=== PATIENT | female | born 1995 | race Caucasian/White ===

== ENCOUNTER 2016-03-03 19:33 | Emergency (ER) | payer MEDICAID | END 2016-03-03 21:35 | disposition home or self-care (01) | LOC: D.ER 19:33 | DX: J02.9 Acute pharyngitis, unspecified (principal); F17.200 Nicotine dependence, unspecified, uncomplicated ==

== ENCOUNTER 2016-07-27 23:36 | Emergency (ER) | payer OTHER ==
[2016-07-28 00:02] LABS: APPEARANCE CLOUDY (CLEAR); COLOR YELLOW (YELLOW); GLUCOSE NEGATIVE (NEGATIVE); KETONE SMALL mg/dL (NEGATIVE); LEUKOCYTE ESTERASE 1+ (NEGATIVE); NITRITE NEGATIVE (NEGATIVE); PROTEIN TRACE mg/dL (NEGATIVE); SPECIFIC GRAVITY 1.015 (1.005-1.020)
[2016-07-28 00:03] LABS: BACTERIA FEW /hpf (NONE SEEN); BILIRUBIN NEGATIVE (NEGATIVE); RED CELLS - URINE 0-5 /hpf (0-5); UDS - AMPHET POSITIVE QUAL (NEGATIVE); UDS - BARB NEGATIVE QUAL (NEGATIVE); UDS - BENZO NEGATIVE QUAL (NEGATIVE); UDS - COCAINE NEGATIVE QUAL (NEGATIVE); UDS - METH NEGATIVE QUAL (NEGATIVE); UDS - OPIATE NEGATIVE QUAL (NEGATIVE); UDS - PCP NEGATIVE QUAL (NEGATIVE); UDS - THC NEGATIVE QUAL (NEGATIVE)
[2016-07-28 00:04] LABS: HCG URINE NEGATIVE (NEGATIVE)
[2016-07-28 00:09] LABS: BASOPHILS 0.3 % (0-2); EOSINOPHILS 1.5 % (0-7); HEMATOCRIT 41.4 % (36.0-48.0); HEMOGLOBIN 14.4 g/dL (12-16); IMMATURE GRANULOCYTES 0.2 % (0-5); LYMPHOCYTES 47.2 % (15-50); MCH 32.6 pg (26.0-34.0); MCHC 34.8 g/dL (31.0-37.0); MCV 93.7 fL (80.0-100.0); MEAN PLATELET VOLUME 10.2 fL (7.4-10.4); MONOCYTES 11.5 % (2-11); NEUTROPHILS 39.3 % (40-80); PLATELET COUNT 229 10x3/uL (130-400); RBC 4.42 10x6/uL (4.00-5.40); RDW 12.2 % (11.5-14.5); WBC 5.8 10x3/uL (4.8-10.8)
[2016-07-28 00:18] LABS: ALBUMIN 4.2 g/dL (3.4-5.0); ALKALINE PHOSPHATASE 52 U/L (46-116); ALT (SGPT) 21 U/L (10-68); BILIRUBIN - TOTAL 1.84 mg/dL (0.2-1.3); CALC OSMOLALITY 278 mosm/kg (275-300); CARBON DIOXIDE 28.1 mmol/L (21.0-32.0); CHLORIDE - SERUM 104 mmol/L (98-107); CREATININE - SERUM 0.7 mg/dL (0.6-1.3); GLUCOSE 94 mg/dL (74-106); POTASSIUM - SERUM 3.8 mmol/L (3.5-5.1); PROTEIN - SERUM 7.6 g/dL (6.4-8.2); SODIUM 140 mmol/L (136-145); UREA NITROGEN 13 mg/dL (7-18); eGFR NON AFRICAN AMERICAN > 90 mL/min (90-120)
== END 2016-07-28 01:19 | disposition home or self-care (01) ==
LOC: D.ER 23:36
PROVIDERS: Emergency Medicine
DX: N39.0 Urinary tract infection, site not specified (principal); F17.200 Nicotine dependence, unspecified, uncomplicated

== ENCOUNTER 2017-03-26 18:56 | Emergency (ER) | payer SELFPAY ==
[2017-03-26 19:51] LABS: COLOR YELLOW (YELLOW)
[2017-03-26 19:52] LABS: APPEARANCE CLEAR (CLEAR); BILIRUBIN NEGATIVE (NEGATIVE); GLUCOSE NEGATIVE (NEGATIVE); KETONE LARGE mg/dL (NEGATIVE); NITRITE NEGATIVE (NEGATIVE); PROTEIN NEGATIVE (NEGATIVE); SPECIFIC GRAVITY 1.025 (1.005-1.020); UROBILINOGEN NORMAL (NORMAL)
[2017-03-26 21:48] LABS: BASOPHILS 0.2 % (0-2); EOSINOPHILS 0.4 % (0-7); HEMATOCRIT 34.7 % (36.0-48.0); HEMOGLOBIN 12.3 g/dL (12-16); LYMPHOCYTES 15.9 % (15-50); MCH 32.6 pg (26.0-34.0); MCHC 35.4 g/dL (31.0-37.0); MEAN PLATELET VOLUME 9.9 fL (7.4-10.4); MONOCYTES 11.1 % (2-11); NEUTROPHILS 72.4 % (40-80); RBC 3.77 10x6/uL (4.00-5.40); RDW 11.5 % (11.5-14.5)
[2017-03-26 21:58] LABS: HCG SERUM POSITIVE (NEGATIVE)
[2017-03-26 22:17] LABS: PLATELET COUNT 172 10x3/uL (130-400)
== END 2017-03-26 22:15 | disposition home or self-care (01) ==
LOC: D.ER 18:56
PROVIDERS: Emergency Medicine; Nurse Practitioner Family
DX: J11.1 Influenza due to unidentified influenza virus with other respiratory manifestations (principal); J06.9 Acute upper respiratory infection, unspecified; F17.200 Nicotine dependence, unspecified, uncomplicated

== ENCOUNTER 2017-05-02 12:23 | Emergency (ER) | payer MEDICAID ==
[2017-05-02 12:58] LABS: BASOPHILS 0.1 % (0-2); EOSINOPHILS 0.7 % (0-7); HEMATOCRIT 33.4 % (36.0-48.0); HEMOGLOBIN 11.9 g/dL (12-16); IMMATURE GRANULOCYTES 0.2 % (0-5); LYMPHOCYTES 21.2 % (15-50); MCH 33.1 pg (26.0-34.0); MCHC 35.6 g/dL (31.0-37.0); MCV 92.8 fL (80.0-100.0); MEAN PLATELET VOLUME 10.2 fL (7.4-10.4); MONOCYTES 5.5 % (2-11); NEUTROPHILS 72.3 % (40-80); PLATELET COUNT 183 10x3/uL (130-400); RDW 11.9 % (11.5-14.5); WBC 8.1 10x3/uL (4.8-10.8)
[2017-05-02 13:07] LABS: HCG SERUM POSITIVE (NEGATIVE)
[2017-05-02 13:35] LABS: ALBUMIN 3.9 g/dL (3.4-5.0); ALKALINE PHOSPHATASE 34 U/L (46-116); ALT (SGPT) 24 U/L (10-68); BILIRUBIN - TOTAL 0.88 mg/dL (0.2-1.3); CALC OSMOLALITY 248 mosm/kg (275-300); CALCIUM 8.8 mg/dL (8.5-10.1); CARBON DIOXIDE 25.9 mmol/L (21.0-32.0); CHLORIDE - SERUM 99 mmol/L (98-107); CREATININE - SERUM 0.6 mg/dL (0.6-1.3); GLUCOSE 105 mg/dL (74-106); HCG - QUANTITATIVE (MATERNAL) 53172 mIU/mL; POTASSIUM - SERUM 3.4 mmol/L (3.5-5.1); PROTEIN - SERUM 7.2 g/dL (6.4-8.2); SODIUM 124 mmol/L (136-145); UREA NITROGEN 9 mg/dL (7-18); eGFR NON AFRICAN AMERICAN > 90 mL/min (90-120)
[2017-05-02 13:42] LABS: APPEARANCE HAZY (CLEAR); BACTERIA MODERATE /hpf (NONE SEEN); BILIRUBIN NEGATIVE (NEGATIVE); COLOR YELLOW (YELLOW); EPITHELIAL CELLS 0-5 /hpf (0-5); GLUCOSE NEGATIVE (NEGATIVE); KETONE NEGATIVE (NEGATIVE); MUCUS <1+ /lpf (NONE SEEN); NITRITE NEGATIVE (NEGATIVE); PROTEIN NEGATIVE (NEGATIVE); RED CELLS - URINE OCC /hpf (0-5); WHITE CELLS - URINE OCC /hpf (0-5)
== END 2017-05-02 17:05 | disposition home or self-care (01) ==
LOC: D.ER 12:23
PROVIDERS: Family Medicine
DX: O20.9 Hemorrhage in early pregnancy, unspecified (principal); Z3A.11 11 weeks gestation of pregnancy; F17.200 Nicotine dependence, unspecified, uncomplicated

== ENCOUNTER → 2017-07-08 14:57 | Outpatient (CLI) | payer BC, MEDICAID ==
[2017-07-08 15:43] LABS: BASOPHILS 0.1 % (0-2); EOSINOPHILS 0.5 % (0-7); HEMATOCRIT 32.4 % (36.0-48.0); HEMOGLOBIN 11.4 g/dL (12-16); IMMATURE GRANULOCYTES 0.3 % (0-5); LYMPHOCYTES 12.5 % (15-50); MCH 33.5 pg (26.0-34.0); MCHC 35.2 g/dL (31.0-37.0); MCV 95.3 fL (80.0-100.0); MEAN PLATELET VOLUME 10.1 fL (7.4-10.4); MONOCYTES 3.4 % (2-11); NEUTROPHILS 83.2 % (40-80); PLATELET COUNT 157 10x3/uL (130-400); RDW 12.3 % (11.5-14.5); WBC 11.2 10x3/uL (4.8-10.8)
[2017-07-08 16:06] LABS: ALBUMIN 3.4 g/dL (3.4-5.0); ALKALINE PHOSPHATASE 38 U/L (46-116); ALT (SGPT) 15 U/L (10-68); CALC OSMOLALITY 275 mosm/kg (275-300); CALCIUM 8.5 mg/dL (8.5-10.1); CARBON DIOXIDE 23.9 mmol/L (21.0-32.0); CHLORIDE - SERUM 104 mmol/L (98-107); CREATININE - SERUM 0.6 mg/dL (0.6-1.3); GLUCOSE 139 mg/dL (74-106); POTASSIUM - SERUM 3.5 mmol/L (3.5-5.1); PROTEIN - SERUM 6.6 g/dL (6.4-8.2); SODIUM 138 mmol/L (136-145); UREA NITROGEN 7 mg/dL (7-18); eGFR NON AFRICAN AMERICAN > 90 mL/min (90-120)
[2017-07-08 16:37] LABS: APPEARANCE CLEAR (CLEAR); BACTERIA MANY /hpf (NONE SEEN); BILIRUBIN NEGATIVE (NEGATIVE); COLOR YELLOW (YELLOW); GLUCOSE NEGATIVE (NEGATIVE); KETONE NEGATIVE (NEGATIVE); NITRITE NEGATIVE (NEGATIVE); PROTEIN NEGATIVE (NEGATIVE); RED CELLS - URINE OCC /hpf (0-5); UROBILINOGEN NORMAL (NORMAL); WHITE CELLS - URINE 0-5 /hpf (0-5)
== END | disposition home or self-care (01) ==
LOC: D.LDO 14:57 → D.ER 14:57 → EDSTATUS 20:04
PROVIDERS: Nurse Practitioner Family
DX: O21.0 Mild hyperemesis gravidarum (principal); Z3A.21 21 weeks gestation of pregnancy; I95.9 Hypotension, unspecified; N39.0 Urinary tract infection, site not specified

== ENCOUNTER → 2017-10-19 22:06 | Outpatient (CLI) | payer BC, MEDICAID ==
[~2017-10-19 22:06] MED LIST: prenatal gummies PO
[2017-10-19 22:44] LABS: APPEARANCE CLEAR (CLEAR); BILIRUBIN NEGATIVE (NEGATIVE); COLOR YELLOW (YELLOW); GLUCOSE NEGATIVE (NEGATIVE); KETONE NEGATIVE (NEGATIVE); NITRITE NEGATIVE (NEGATIVE); PROTEIN NEGATIVE (NEGATIVE); SPECIFIC GRAVITY 1.015 (1.005-1.020); UROBILINOGEN NORMAL (NORMAL)
== END | disposition home or self-care (01) ==
LOC: D.LDO 22:06
PROVIDERS: Obstetrics & Gynecology
DX: O26.893 Other specified pregnancy related conditions, third trimester (principal); Z3A.35 35 weeks gestation of pregnancy; M54.5 Low back pain; R35.0 Frequency of micturition

== ENCOUNTER 2017-11-17 06:33 | Outpatient (CLI) | payer BC, MEDICAID ==
[2017-12-03 11:50] VITALS: BMI 24.6
== END 2017-11-17 07:05 | disposition home or self-care (01) ==
LOC: D.LDO 06:33
DX: O26.893 Other specified pregnancy related conditions, third trimester (principal); Z3A.39 39 weeks gestation of pregnancy

== ENCOUNTER 2017-11-20 09:52 | Inpatient (IN) | payer BC, MEDICAID ==
[~2017-11-20] VITALS: Ht 154.9 cm; Wt 68.0 kg
--- NOTE | ~2017-11-20 | OP ---
PATIENT NAME: MARC HUNT MEDICAL RECORD: [id number] :96 LOCATION:[facility]1274 ADMISSION DATE:11/20/17 SURGEON: BEAR PARISI MD DATE OF OPERATION: 11/21/2017 PREOPERATIVE DIAGNOSES: 1. at term. 2. Arrest of dilation. POSTOPERATIVE DIAGNOSES: 1. at term. 2. Arrest of dilation. 3. Mother delivered. PROCEDURE: Primary low transverse section. SURGEON: Bear Parisi MD TRIM SETTER: Familia Sharp. ANESTHESIA: Spinal. FINDINGS: Viable female , vertex presentation. OP with caput. Weight 7 pounds 11 ounces with 9 and 9 Apgars. Unremarkable uterus, tubes, and ovaries. SPECIMENS REMOVED: Placenta. SPECIMEN DISPOSITION: Discarded. ESTIMATED BLOOD LOSS: 800 cc. FLUIDS: 1300 cc of lactated Ringer's. URINE OUTPUT: 600 cc of clear urine. COMPLICATIONS: None. DRAIN: Rosas to gravity. INDICATIONS: The patient is a 21-year-old female undergoing induction of labor at term. The patient progresses in the active labor and after 4 hours of adequate contractions, no further dilation and increasing caput. The patient is consented for primary low transverse section. DESCRIPTION OF PROCEDURE: After informed consent was assured, the patient was taken to the operating room where anesthetic was obtained. The patient was prepped and draped and the anesthetic assessed. Once satisfied with the anesthetic, a Pfannenstiel incision was made and the abdomen was entered sharply. The peritoneum and the rectus bellies were and a DeLee all-purpose retractor inserted. Bladder flaps developed and this retractor was now reinserted. Low transverse hysterotomy was performed and the infant was delivered onto the abdomen atraumatically. Cord was doubly clamped and cut and the infant passed to the attendance. The placenta is delivered via Crede maneuver and passed off the field. After cord clamping, blood sample was obtained. Ancef has been given as well as Pitocin now in the lactated Ringer's. OPERATIVE REPORT [id number] MARC HUNT After the uterus has been cleared of clot and debris, it is closed with a running locked stitch of chromic. Simple stitches applied to the left corner to obtain hemostasis. Uterus was returned. Pelvis was irrigated and inspection of the hysterotomy revealed adequate hemostasis. Peritoneum is now reapproximated in the midline and the fascia closed with looped PDS. Subcutaneous tissue was now inspected. Bleeding vessels cauterized and the skin reapproximated with german. Sponge, lap, and needle counts correct times 2 and sterile dressing was applied. The patient will be recovered and cared for on labor and delivery. TRANSINT:[id number] Voice Confirmation ID: [id number] DOCUMENT ID: [id number] BEAR PARISI MD at 1450 CC: [id number] DICTATION DATE: 11/21/17 1525 ICING COATER: 11/21/17 1601 ADM IN [facility] [address] [id number]
--- NOTE | ~2017-11-20 | DS ---
PATIENT:MARC HUNT :89 MEDICAL RECORD: [id number] DISCHARGE SUMMARY ADMISSION DATE: 11/20/17 DISCHARGE DATE: 11/23/17 DATE OF ADMISSION: 11/20/2017 DATE OF DISCHARGE: 11/23/2017 ADMISSION DIAGNOSIS: at term. DISCHARGE DIAGNOSIS: Arrest of dilation. PROCEDURE: Primary low transverse section. ATTENDING: Azar Parisi MD HISTORY OF PRESENT ILLNESS: See the H&P in the chart. SUMMARY OF HOSPITALIZATION: The patient was admitted for an induction of labor, progressed into labor and failed to dilate after 5 cm and adequate contractions. The patient had primary section without incident. At the time of discharge, her hematocrit was 24 and she has been instructed to take p.o. iron. The patient is asymptomatic. The patient does have cough; however, it is not productive. I will prescribe Robitussin-AC and give her respiratory precautions. Incision is clean, dry, and intact. Standard postoperative and precautions have been reviewed. Follow up on Friday for staple removal. TRANSINT:[id number] Voice Confirmation ID: [id number] DOCUMENT ID: [id number] AZAR PARISI MD at 1329 CC: [id number] DICTATION DATE: 11/23/17 0943 COMMERCIAL SALES DIRECTOR: 11/23/172007 DIS IN 11/23/17 [id number] [place] [address]
[2017-11-20 17:30] VITALS: BP 110/58; Ht 154.9 cm; Wt 68.0 kg
[2017-11-20 17:46] LABS: HEMATOCRIT 29.1 % (36.0-48.0); HEMOGLOBIN 9.9 g/dL (12-16); MCH 32.4 pg (26.0-34.0); MCV 95.1 fL (80.0-100.0); MEAN PLATELET VOLUME 10.3 fL (7.4-10.4); RBC 3.06 10x6/uL (4.00-5.40); RDW 12.7 % (11.5-14.5); WBC 11.9 10x3/uL (4.8-10.8)
[2017-11-20 17:52] LABS: UDS - AMPHET NEGATIVE QUAL (NEGATIVE); UDS - BARB NEGATIVE QUAL (NEGATIVE); UDS - BENZO NEGATIVE QUAL (NEGATIVE); UDS - COCAINE NEGATIVE QUAL (NEGATIVE); UDS - OPIATE NEGATIVE QUAL (NEGATIVE); UDS - PCP NEGATIVE QUAL (NEGATIVE); UDS - THC NEGATIVE QUAL (NEGATIVE)
[2017-11-21] VITALS (10 sets, daily range): BP systolic 112–125; BP diastolic 56–72
[2017-11-21 06:15] LABS: RAPID PLASMA REAGIN Non Reactive (Non Reactive)
[2017-11-22 02:54] VITALS: BP 107/61
[2017-11-22 05:59] LABS: BASOPHILS 0.1 % (0-2); EOSINOPHILS 0.2 % (0-7); IMMATURE GRANULOCYTES 0.5 % (0-5); MCH 32.4 pg (26.0-34.0); MCHC 34.3 g/dL (31.0-37.0); MCV 94.3 fL (80.0-100.0); MEAN PLATELET VOLUME 9.8 fL (7.4-10.4); MONOCYTES 4.7 % (2-11); NEUTROPHILS 87.5 % (40-80); RDW 12.8 % (11.5-14.5); WBC 13.3 10x3/uL (4.8-10.8)
[2017-11-22 06:10] LABS: HEMOGLOBIN 7.9 g/dL (12-16); PLATELET COUNT 125 10x3/uL (130-400); RBC 2.44 10x6/uL (4.00-5.40)
[2017-11-22 07:42] VITALS: BP 121/57
[2017-11-22 14:57] VITALS: BP 110/55
[2017-11-22 19:10] VITALS: BP 106/60
[2017-11-22 22:53] VITALS: BP 129/73
[2017-11-23 08:37] VITALS: BP 140/73
[2017-11-23] MEDS ORDERED: PERCOCET 7.5/321 TAB PO (10:00)
[2017-11-23] MEDS ORDERED: GUAIFENESI100 MG/5 M PO (10:04)
== END 2017-11-23 14:15 | disposition home or self-care (01) | DRG 788 ==
LOC: D.LD 09:52
PROVIDERS: Obstetrics & Gynecology
PROC: 10D00Z1 Extraction of Products of Conception, Low, Open Approach (ICD-10-PCS; principal; 2017-11-21 13:00)
DX: O62.1 Secondary uterine inertia (principal); Z3A.40 40 weeks gestation of pregnancy; Z37.0 Single live birth; O99.334 Smoking (tobacco) complicating childbirth

== ENCOUNTER 2017-11-27 22:08 | Emergency (ER) | payer BC, MEDICAID ==
[~2017-11-27] VITALS: Ht 154.9 cm; Wt 65.0 kg
[~2017-11-27 22:08] MED LIST changes: +GUAIFENESI100 MG/5 M PO; +PERCOCET 7.5/321 TAB PO
[2017-11-27 22:16] VITALS: Ht 154.9 cm; Wt 65.0 kg
[2017-11-27 22:36] LABS: BASOPHILS 0.1 % (0-2); EOSINOPHILS 1.4 % (0-7); HEMATOCRIT 25.5 % (36.0-48.0); HEMOGLOBIN 8.3 g/dL (12-16); IMMATURE GRANULOCYTES 0.7 % (0-5); LYMPHOCYTES 11.5 % (15-50); MCH 31.2 pg (26.0-34.0); MCHC 32.5 g/dL (31.0-37.0); MCV 95.9 fL (80.0-100.0); MEAN PLATELET VOLUME 8.8 fL (7.4-10.4); MONOCYTES 6.8 % (2-11); NEUTROPHILS 79.5 % (40-80); RBC 2.66 10x6/uL (4.00-5.40); RDW 12.8 % (11.5-14.5); WBC 12.3 10x3/uL (4.8-10.8)
[2017-11-27 22:38] LABS: PLATELET COUNT 238 10x3/uL (130-400)
[2017-11-27 22:49] LABS: ALBUMIN 2.3 g/dL (3.4-5.0); ALKALINE PHOSPHATASE 86 U/L (46-116); ALT (SGPT) 12 U/L (10-68); CALC OSMOLALITY 280 mosm/kg (275-300); CALCIUM 8.1 mg/dL (8.5-10.1); CARBON DIOXIDE 23.9 mmol/L (21.0-32.0); CHLORIDE - SERUM 105 mmol/L (98-107); CREATININE - SERUM 0.8 mg/dL (0.6-1.3); GLUCOSE 106 mg/dL (74-106); POTASSIUM - SERUM 3.5 mmol/L (3.5-5.1); PROTEIN - SERUM 6.1 g/dL (6.4-8.2); SODIUM 142 mmol/L (136-145); UREA NITROGEN 6 mg/dL (7-18); eGFR NON AFRICAN AMERICAN > 90 mL/min (90-120)
[2017-11-27 23:33] LABS: APPEARANCE HAZY (CLEAR); BILIRUBIN NEGATIVE (NEGATIVE); COLOR YELLOW (YELLOW); GLUCOSE NEGATIVE (NEGATIVE); KETONE NEGATIVE (NEGATIVE); NITRITE NEGATIVE (NEGATIVE); PROTEIN NEGATIVE (NEGATIVE); UROBILINOGEN NORMAL (NORMAL)
[2017-11-27 23:34] LABS: BACTERIA MODERATE /hpf (NONE SEEN); EPITHELIAL CELLS 0-5 /hpf (0-5); RED CELLS - URINE 0-5 /hpf (0-5)
[2017-11-28] MEDS ORDERED: OMNICEF300 MG PO (00:58)
[2017-11-28 01:28] VITALS: BP 128/67
== END 2017-11-28 01:28 | disposition home or self-care (01) ==
LOC: D.ER 22:08
PROVIDERS: Family Medicine
DX: N39.0 Urinary tract infection, site not specified (principal); F17.200 Nicotine dependence, unspecified, uncomplicated

== ENCOUNTER 2017-12-03 11:41 | Emergency (ER) | payer BC, MEDICAID ==
[~2017-12-03] VITALS: Ht 154.9 cm; Wt 59.1 kg
[~2017-12-03 11:41] MED LIST changes: +OMNICEF300 MG PO
[2017-12-03 11:50] VITALS: Ht 154.9 cm; Wt 59.1 kg
[2017-12-03] MEDS ORDERED: VOLTAREN75 MG PO (13:50)
[2017-12-03] MEDS ORDERED: VIBRAMYCIN 100100 MG PO (13:50)
[2017-12-03] MEDS ORDERED: CLEOCIN HCL300 MG PO (14:03)
[2017-12-03 14:55] VITALS: BP 124/87
== END 2017-12-03 14:56 | disposition home or self-care (01) ==
LOC: D.ER 11:41
DX: O90.89 Other complications of the puerperium, not elsewhere classified (principal); O90.0 Disruption of cesarean delivery wound; L03.311 Cellulitis of abdominal wall; F17.200 Nicotine dependence, unspecified, uncomplicated

== ENCOUNTER 2018-01-14 20:49 | Emergency (ER) | payer BC, MEDICAID ==
[~2018-01-14] VITALS: Ht 154.9 cm; Wt 54.5 kg
[~2018-01-14 20:49] MED LIST changes: +CLEOCIN HCL300 MG PO; +VIBRAMYCIN 100100 MG PO; +VOLTAREN75 MG PO
[2018-01-14 20:55] VITALS: Ht 154.9 cm; Wt 54.5 kg
[2018-01-14 22:14] LABS: ALBUMIN 3.8 g/dL (3.4-5.0); ALKALINE PHOSPHATASE 79 U/L (46-116); ALT (SGPT) 26 U/L (10-68); BILIRUBIN - TOTAL 1.05 mg/dL (0.2-1.3); CALC OSMOLALITY 275 mosm/kg (275-300); CALCIUM 8.8 mg/dL (8.5-10.1); CARBON DIOXIDE 29.3 mmol/L (21.0-32.0); CHLORIDE - SERUM 101 mmol/L (98-107); CREATININE - SERUM 0.8 mg/dL (0.6-1.3); GLUCOSE 90 mg/dL (74-106); POTASSIUM - SERUM 3.4 mmol/L (3.5-5.1); PROTEIN - SERUM 7.7 g/dL (6.4-8.2); SODIUM 138 mmol/L (136-145); UREA NITROGEN 13 mg/dL (7-18); eGFR NON AFRICAN AMERICAN > 90 mL/min (90-120)
[2018-01-14 22:15] LABS: APPEARANCE HAZY (CLEAR); BILIRUBIN NEGATIVE (NEGATIVE); COLOR YELLOW (YELLOW); GLUCOSE NEGATIVE (NEGATIVE); KETONE NEGATIVE (NEGATIVE); NITRITE NEGATIVE (NEGATIVE); PROTEIN TRACE mg/dL (NEGATIVE); SPECIFIC GRAVITY 1.015 (1.005-1.020); UROBILINOGEN NORMAL (NORMAL)
[2018-01-14 22:16] LABS: BACTERIA MANY /hpf (NONE SEEN); EPITHELIAL CELLS 0-5 /hpf (0-5); HCG URINE NEGATIVE (NEGATIVE); RED CELLS - URINE 0-5 /hpf (0-5)
[2018-01-14 22:17] LABS: AMYLASE - SERUM 112 U/L (25-115); LIPASE 84 U/L (73-393)
[2018-01-14 22:18] LABS: HEMATOCRIT 38.5 % (36.0-48.0); HEMOGLOBIN 12.3 g/dL (12-16); MCH 28.9 pg (26.0-34.0); MCHC 31.9 g/dL (31.0-37.0); MCV 90.6 fL (80.0-100.0); MEAN PLATELET VOLUME 10.4 fL (7.4-10.4); PLATELET COUNT 237 10x3/uL (130-400); RBC 4.25 10x6/uL (4.00-5.40); RDW 12.8 % (11.5-14.5); WBC 2.7 10x3/uL (4.8-10.8)
[2018-01-14 22:27] LABS: TROPONIN-I < 0.017 ng/mL (0.000-0.060)
[2018-01-14 22:40] LABS: EOSINOPHILS 2 % (0-7); LYMPHOCYTES 59 % (15-50); MONOCYTES 2 % (2-11); NEUTROPHILS 37 % (40-80); PLATELET ESTIMATE NORMAL
[2018-01-15] MEDS ORDERED: MACROBID100 MG PO (00:38)
[2018-01-15] MEDS ORDERED: PHENAZOPYRIDIN200 MG PO (00:38)
[2018-01-15] MEDS ORDERED: ZOFRAN ODT4 MG/UDTAB PO (00:38)
[2018-01-15] MEDS ORDERED: KEFLEX500 MG PO (00:38)
[2018-01-15 00:50] VITALS: BP 101/56
== END 2018-01-15 00:51 | disposition home or self-care (01) ==
LOC: D.ER 20:49
PROVIDERS: Family Medicine
DX: R11.2 Nausea with vomiting, unspecified (principal); R10.9 Unspecified abdominal pain; N39.0 Urinary tract infection, site not specified; R19.7 Diarrhea, unspecified; F17.200 Nicotine dependence, unspecified, uncomplicated

== ENCOUNTER → 2018-10-21 10:31 | Outpatient (CLI) | payer BC ==
[2018-01-14 20:55] VITALS: BMI 22.7
[~2018-10-21 10:31] MED LIST changes: +KEFLEX500 MG PO; +MACROBID100 MG PO; +PHENAZOPYRIDIN200 MG PO; +ZOFRAN ODT4 MG/UDTAB PO
--- NOTE | 2018-10-23 08:45 | EC ---
PATIENT:MARC HUNT DATE OF SERVICE: 10/21/18 SEX: F MEDICAL RECORD: [id number] DATE OF : [birth year] LOCATION:D.[facility] AGE OF PATIENT: 22 ADMISSION DATE: 10/21/18 REFERRING PHYSICIAN: INTERPRETING PHYSICIAN: JOAQUIN GRIFFIN MD ECHOCARDIOGRAM REPORT ECHO CHARGES 4 ECHO COMPLETE Date: 10/21/18 CLINICAL DIAGNOSIS: HEART MURMUR, PALPITATIONS/DIZZY 27 WEEKS . ECHOCARDIOGRAPHIC MEASUREMENTS (adult normal given) AC root (d.<3.7cm) 3.2 cm LV Septum d (<1.2 cm> 1.4 cm Valve Excursion 1.6 cm LV Septum (systole) 1.5 cm Left Atria (s.<4.0cm> 3.2 cm LVPW d(<1.2cm) 1.2 cm RV (d.<2.3cm) 3.0 cm LVPW (sytole) 1.5 cm LV diastole(<5.6CM) 4.5 cm MV E-F(>70mm/sec) cm LV systole 3.0 cm LVOT Diameter 2.0 cm MV exc.(>10mm) 1.6 cm Est.ejection fraction (50-75%) % DOPPLER: LVIT cm/sec A 56.0 cm/sec E 104 cm/sec LA cm/sec RVSP 23 mmHg LVOT 122 cm/sec AOP1/2T m/s Asc. Ao 140 cm/sec RVOT 83 cm/sec RA cm/sec PA 118 cm/sec AV Gradient Peak 7.88 mmHg AV Mean 3.87 mmHg AV Area 2.9 cm MV Gradient Peak 5.47 mmHg MV Mean 3.44 mmHg MV Area cm COMMENTS: Motor Room Controller: Shannan DE SANTIAGO Plastic Extrusion Operator: 3 Dr. Skelton TAPE# PACS Pericardial Effusion N DATE OF SERVICE: 10/21/2018 Adequate 2D, color flow imaging, spectral Doppler, and M-mode. No LVH. LV internal dimensions are normal. Wall motion is normal. EF is greater than or equal to 55%. Aortic valve is tricuspid. No evidence of stenosis by Doppler interrogation. Left atrium is normal. Mitral valve shows no prolapse. Trace MR. Right-sided chambers are grossly normal. Trace TR. ECHOCARDIOGRAM REPORT [id number] MARC HUNT TRANSINT:[id number] Voice Confirmation ID: [id number] DOCUMENT ID: [id number] JOAQUIN GRIFFIN MD at 0845 CC: [id number] DICTATION DATE: 10/22/18 1359 AIRCRAFT AVIONICS TECHNICIAN: 10/22/18 1542 DEP CLI 10/21/18 [id number] [place] [id number]
== END | disposition home or self-care (01) ==
LOC: D.HCCECHO 10:31 → D.HCCARDIO 11:30 → D.HCCECHO 11:30
PROVIDERS: ATTEND Internal Medicine Interventional Cardiology
DX: O26.892 Other specified pregnancy related conditions, second trimester (principal); Z3A.27 27 weeks gestation of pregnancy; R42 Dizziness and giddiness; R00.2 Palpitations

== ENCOUNTER → 2018-11-19 12:59 | Outpatient (CLI) | payer BC ==
[2018-01-14 20:55] VITALS: BMI 22.7
[~2018-11-19 12:59] MED LIST changes: +IBUPROFEN800 MG PO
== END | disposition home or self-care (01) ==
LOC: D.US 12:59
PROVIDERS: ATTEND Obstetrics & Gynecology
DX: O26.849 Uterine size-date discrepancy, unspecified trimester (principal)

== ENCOUNTER 2019-01-11 05:59 | Inpatient (IN) | payer BC, MEDICAID ==
[~2019-01-11] VITALS: Ht 154.9 cm; Wt 63.5 kg
[2019-01-11] VITALS (13 sets, daily range): BP systolic 90–117; BP diastolic 35–69; Ht 154.9 cm; Wt 63.5 kg
[~2019-01-11 05:59] MED LIST changes: -IBUPROFEN800 MG PO
[2019-01-11 07:22] LABS: UDS - AMPHET NEGATIVE QUAL (NEGATIVE); UDS - BARB NEGATIVE QUAL (NEGATIVE); UDS - BENZO NEGATIVE QUAL (NEGATIVE); UDS - COCAINE NEGATIVE QUAL (NEGATIVE); UDS - OPIATE NEGATIVE QUAL (NEGATIVE); UDS - PCP NEGATIVE QUAL (NEGATIVE); UDS - THC NEGATIVE QUAL (NEGATIVE)
[2019-01-11 07:29] LABS: HEMATOCRIT 28.4 % (36.0-48.0); MCH 28.7 pg (26.0-34.0); MCHC 31.7 g/dL (31.0-37.0); MCV 90.4 fL (80.0-100.0); MEAN PLATELET VOLUME 9.3 fL (7.4-10.4); RBC 3.14 10x6/uL (4.00-5.40); RDW 14.6 % (11.5-14.5); WBC 7.5 10x3/uL (4.8-10.8)
--- NOTE | 2019-01-11 10:52 | NUR ---
BABY GIRL AT 1003.
--- NOTE | 2019-01-11 10:58 | NUR ---
1043 RECIEVED PATIENT AWAKE AND ALERT. FUNUS HEIGHT AT UMBILICUS AND MIDLINE, UTERUS FIRM. PERIPAD PUT IN PLACE, SCANT RED DRAINAGE FROM VAGINA
--- NOTE | 2019-01-11 11:23 | NUR ---
RECEIVED PT VIA BED FROM POST C/S PER DR PARISI, PT TO ROOM 1257, VS INITIATED, IV IN RIGHT FA INTACT WITH NO REDNESS OR EDEMA, NS WITH PITOCIN TO PUMP INFUSING AT 125 ML/HR, FF, ML, U/U, MOD BLEEDING WITH NO CLOTS NOTED, HUMBLE PAD CHANGED, [employer] WITH LARGE DRESSING CDI WITH NO DRAINAGE NOTED, ICE PACK TO ABD, PANIAGUA CATH IN PLACE DRAINING DARK YELLOW URINE, EMPTIED 400 MLS FROM PANIAGUA, SCD'S CONNECTED TO PUMP AND WORKING PROPERLY, PT DENIES PAIN AT THIS TIME, FRESH H20 SERVED, PT ORIENTED TO ROOM, BED IN LOW POSITION, SIDE RAILS X 2, CALL LIGHT IN REACH, FAMILY TO ROOM
--- NOTE | 2019-01-11 12:00 | NUR ---
INFANT TO ROOM VIA OPEN CRIB CART PER JOSE VALENTIN, RN
--- NOTE | 2019-01-11 12:38 | NUR ---
PT HOLDING , ASKED PT IF SHE SMOKED, PT REPORTS "VAPING", REQUESTED NICOTINE PATCH, NICOTINE PATCH PLACED AT THIS TIME, VS CONTINUE, PT STATES "I'M STARTING TO HURT A LITTLE", WILL ADM PAIN MED, FOB FEEDING , JOSE VALENTIN, RN TO ROOM AT THIS TIME
--- NOTE | 2019-01-11 12:48 | NUR ---
ADM DILAUDID SIVP PER MD ORDERS, SEE EMAR, FF, ML, U/U, MOD BLEEDING WITH NO CLOTS NOTES, HUMBLE PAD AND CHUX CHANGED OUT, PT ENC TO DRINK PLENTY OF FLUIDS, PT VERBALIZES UNDERSTANDING, PT INST ON AND DEMONSTRATED I.S. WITH GOOD EFFORT, PT DENIES FURTHER NEEDS
--- NOTE | 2019-01-11 13:20 | NUR ---
PT VISITING WITH FAMILY AND FRIEND, VS CONTINUE, PT ENC TO DRINK PLENTY OF FLUIDS AT THIS TIME, RATES INC PAIN 05/20, DENIES NEEDS, LUNCH TRAY REMOVED
--- NOTE | 2019-01-11 13:43 | NUR ---
DR PARISI NOTIFIED, REPORT OF DECREASED URINE OUTPUT AND BLEEDING, ORDERS TO DISCONTINUE NS WITH PITOCIN AND ADM BOLUS OF 1L OF NS, ORDERS READ BACK AND VERIFIED
--- NOTE | 2019-01-11 13:50 | NUR ---
PT ABLE BODIED WATCHMAN LIGHT, PT REQUESTED AND SERVED CUP OF ICE, DENIES FURTHER NEEDS, FOB, FAMILY AND FRIEND AT BEDSIDE
--- NOTE | 2019-01-11 14:05 | NUR ---
PT AWAKE, VISITING WITH FAMILY AND FRIEND, FOB AT BEDSIDE, NS WITH PITOCIN DISCONTINUED, NS BOLUS HUNG VIA PUMP PER MD ORDERS, SEE EMAR, PT'S NICOTINE PATCH FELL OFF, RETAPED BACK ON ARM, PT DENIES FURTHER NEEDS, BLANKET PROVIDED TO PT'S MOM
--- NOTE | 2019-01-11 15:00 | NUR ---
PT BOTTLE FEEDING , LAST SET OF SX VS OBTAINED, EMPTIED 350 MLS OF DARK YELLOW URINE FROM PANIAGUA CHAMBER TO PANIAGUA BAG, PT RATES INC PAIN 09/19, INFORMED PT THAT I WILL ADM PAIN MED AND TORADOL WHEN DUE, PT VERBALIZES UNDERSTANDING, DENIES NEEDS AT THIS TIME, FOB LAYING IN BED WITH PT, PT'S MOM AND FRIEND AT BEDSIDE
--- NOTE | 2019-01-11 16:28 | NUR ---
VS OBTAINED, PANIAGUA CATH EMPTIED, HUMBLE CARE DONE WITH WET WARM WASH CLOTHS, LITE BLEEDING NOTED WITH 1 SMALL PEA SIZE CLOT ON HUMBLE PAD, HUMBLE PAD AND CHUX CHANGED, ADM TORADOL PER MD ORDERS, SEE EMAR, FRESH ICE PACK TO ABD, SCD'S CONTINUE ON AND WORKING PROPERLY, INFORMED PT THAT I WILL ADM PAIN MED WHEN DUE, PT VERBALIZES UNDERSTANDING, PT DENIES FURTHER NEEDS, INFANT IN OPEN CRIB CART AND FAMILY AT BEDSIDE
--- NOTE | 2019-01-11 17:05 | NUR ---
PT REPORTS "PAIN IS THE SAME", ADM DILJAMIEID THO PER MD ORDERS, SEE EMAR, POC DISCUSSED WITH PT REGARDING REMOVAL OF PANIAGUA CATH, SALINE LOCK IV, AND PAIN MED, PT VERBALIZES UNDERSTANDING, DENIES FURTHER NEEDS, INFANT IN OPEN CRIB CART AND FAMILY AT BEDSIDE
--- NOTE | 2019-01-11 17:25 | NUR ---
DR PARISI NOTIFIED, INFORMED HIM THAT OUTPUT WAS GOOD, ASKED HIM SINCE SHE WILL BE SALINE LOCKED, IF HE WANTED TO CONTINUE THE TORADOL IV OR CHANGE TO PO MOTRIN, ALSO, ASKED ABOUT DIET, ORDERS TO CONTINUE TORADOL IV FOR 24 HOURS, AND CAN CHANGE TO REGULAR DIET, ORDERS READ BACK AND VERIFIED
--- NOTE | 2019-01-11 19:12 | NUR ---
SHIFT REPORT TO FABIAN RINCON RN
--- NOTE | 2019-01-11 19:12 | NUR ---
BEDSIDE REPORT RECEIVED FROM OFF GOING DAY SHIFT NURSE ROSI CORNEJO.
--- NOTE | 2019-01-11 20:15 | NUR ---
RN IN ROOM TO ASSESS PT AND OBTAIN VS. PT AWAKE AND RESTING IN BED WHILE S/O RESTING IN BED WITH PT AND HIS EYES CLOSED. LIGHTS IN ROOM WERE DIMMED. PT'S MOTHER RESTING ON COUCH. THIS RN SPOKE WITH PT TO INFORM HER OF WHAT I WOULD BE DOING I WAS GOING AROUNG TO PT'S RIGHT SIDE. WHEN S/O HEARD VOICES, HE RAISED UP IN THE BED. AT THAT TIME, THIS RN HEARD A "THUD" NOT REALIZING WHAT IT WAS. S/O JUMPED UP AND STARTED YELLING "OH MY GOD" WHEN HE REALIZED THE BABY HAD FALLEN OFF OF THE BED AND TO THE FLOOR. HE HAD THE BABY PLACED UP UNDER HIS LEFT ARM AND THE SIDE RAIL WAS DOWN ON THE BED WHILE HE WAS ASLEEP. THE S/O PICKED THE BABY UP OFF OF THE FLOOR. THIS RN TOOK THE BABY FROM THE S/O AND INFORMED THE PT SHE WOULD TAKE THE BABY TO THE NBN TO BE CHECKED OUT BY THE NURSERY NURSE. BABY IS CRYING AT THIS TIME. NURSE. THIS RN THEN TOOK THE BAB
--- NOTE | 2019-01-11 20:20 | NUR ---
INFANT TO NBN AND REPORT GIVEN TO ALEJANDRO CLARK, NURSE REGARDING INFANT FALLING OUT OF BED TO THE FLOOR. AMBER ASSESSED THE INFANT AND STATED THAT SHE WILL CALL THE SHEARER OPERATOR.
--- NOTE | 2019-01-11 20:30 | NUR ---
INFANT BACK TO MOM BY ALEJANDRO CLARK, NB NURSE AND Clare RINCON RN. INFORMED MOM THAT BABY WAS CHECKED AND VSS. DISCUSSED WITH MOM THAT BABY NEEDS TO REMAIN IN CRIB WHEN SHE IS SLEEPING AND THAT BEDRAILS X2 NEED TO REMAIN UP FOR SAFETY. VERBALIZED UNDERSTANDING.
--- NOTE | 2019-01-11 20:50 | NUR ---
THIS RN REMAINED IN THE ROOM WITH MOM AND THE FOR APPROX. 20 MINUTES AFTER THE WAS RETURNED TO HER. MOM IS UPSET AND STATING "I DON'T UNDERSTAND WHAT HAPPENED." GRANDMOTHER AT BEDSIDE CONSOLING MOM AND TELLING HER THAT ACCIDENTS HAPPEN. S/O APPEARS TO BE UPSET WITH PT BECAUSE SHE IS UPSET ABOUT THE BABY FALLING AND TO UPSET TO TALK WITH HIM. HE LEAVES THE ROOM. ANOTHER MALE FAMILY MEMBER IS IN THE ROOM AT THIS TIME TOO. GRANDMOTHER INFORMS MOM THAT THIS FAMILY MEMBER IS GOING TO TAKE THE S/O HOME. NO DISTRESS NOTED WITH BABY. MOM IS CALMING DOWN BY THE TIME THIS RN IS LEAVING THE ROOM. BED IN LOW POSITION. SR UP X2. CALL LIGHT WITHIN PTS REACH. MOM HOLDING . MOM VERBALIZED UNERSTANDING OF PLACING IN CRIB WHEN SLEEPING. INSTRUCTED PT TO NOTIFY NURSE WITH ANY PROBLEMS, NEEDS, OR CONCERNS. VERBALIZED UNDERSTANDING.
--- NOTE | 2019-01-11 21:20 | NUR ---
PT RESTING IN BED HOLDING . PT IS CALMER AT THIS TIME. PLACED IN OPEN CRIB AT PTS BEDSIDE. IN NO DISTRESS. ASSESSMENT COMPLETE. VSS. BBS CLEAR. LOW TRANSVERSE INCISION COVERED WITH DRESSING C/D/I. FUNDUS FIRM 2 BELOW UMBILICUS. ACTIVE BS X4 QUADRANTS. PT REPORTS THAT SHE HAS NOT PASSED FLATUS. SCDS ON BLE AND WORKING PROPERLY.IV INFUSING LR TO RIGHT FA. POC DISCUSSED INCLUDING PAIN MANAGEMENT, DC FC, SL IV, AND SCDS. QUESTIONS ANSWERED. PT INSTRUCTED TO NOTIFY NURSE WITH ANY PROBLEMS, NEEDS, OR CONCERNS. VERBALIZED UNDERSTANDING. BED IN LOW POSITION. SR UP X2. CALL LIGHT WITHIN PTS REACH.
--- NOTE | 2019-01-11 21:45 | NUR ---
IV CONVERTED TO SL. NO REDNESS OR TENDERNESS NOTED TO SITE. FC DC'D PER MD ORDER WITH 700ML OF YELLOW CONCENTRATED URINE COLLECTED IN PANIAGUA BAG. PT INSTRUCTED ON VOID CHECKS AND TO NOTIFY NURSE FOR ASSISTANCE WHEN NEEDING TO GET UP TO BATHROOM. VERBALIZED UNDERSTANDING. BED IN LOW POSITION. SR UP X2. CALL LIGHT WITHIN PTS REACH.
--- NOTE | 2019-01-11 21:48 | NUR ---
PERCOCET 10 X1 TABLET GIVEN FOR C/O ABD/INCISIONAL PAIN. INSTRUCTED PT TO NOTIFY NURSE IF MEDICATION NOT EFFECTIVE. VERBALIZED UNDERSTANDING.
--- NOTE | 2019-01-11 22:53 | NUR ---
PT RESTING IN BED HOLDING INFANT. NO DISTRESS NOTED WITH EITHER. PT REPORTS HER PAIN IS NOW 6/10. NEW BABY SHIRT AND BLANKET GIVEN TO PT. NO OTHER REQUEST MADE. INSTRUCTED PT TO NOTIFY NURSE WITH ANY PROBLEMS, NEEDS, OR CONCERNS. VERBALIZED UNDERSTANDING. BED IN LOW POSITION. SR UP X2. CALL LIGHT WITHIN PTS REACH.
--- NOTE | 2019-01-11 23:45 | NUR ---
ASSISTED PT UP TO BATHROOM FOR 1ST VOID AFTER FC DC'D. PT VOIDED 700ML OF BLOOD TINGED UNRINE. INSTRUCTED ON USE OF HUMBLE BOTTLE. PT ASSISTED BACK TO BED. VS OBTAINED. FUNDUS FIRM AT 2 BELOW UMBILICUS. NO REQUEST MADE. INSTRUCTED PT TO NOTIFY NURSE WITH ANY PROBLEMS, NEEDS, OR CONCERNS. VERBALIZED UNDERSTANDING. BED IN LOW POSITION. SR UP X2. CALL LIGHT WITHIN PTS REACH.
--- NOTE | 2019-01-12 01:50 | NUR ---
PT RESTING IN BED WITH EYES CLOSED. NO DISTRESS NOTED. BED IN LOW POSITION. SR UP X2. CALL LIGHT WITHIN PTS REACH.
[2019-01-12 04:00] VITALS: BP 111/57
--- NOTE | 2019-01-12 04:00 | NUR ---
PT RESTING IN BED. VSS. PT ASSISTED UP TO BATHROOM AND BACK TO BED. SCHEDULED TORADOL GIVEN SIVP. IV SITE WITHOUT REDNESS OR TENDERNESS. PT INSTRUCTED TO NOTIFY NURSE WITH ANY PROBLEMS, NEEDS, OR CONCERNS. VERBALIZED UNDERSTANDING. BED IN LOW POSITION. SR UP X2. CALL LIGHT WITHIN PTS REACH. IN NBN AT THIS TIME.
--- NOTE | 2019-01-12 04:28 | NUR ---
PERCOCET 10 X1 TABLET GIVEN FOR C/O ABD/INCISIONAL PAIN OF 10/10. FRESH ICE PACK PLACED TO INCISION. INSTRUCTED PT TO NOTIFY NURSE WITH ANY OTHER PROBLEMS, NEEDS, OR CONCERNS. VERBALIZED UNDERSTANDING.
--- NOTE | 2019-01-12 05:30 | NUR ---
PT SITTING UP IN BED. PT REPORTS THAT HER PAIN IS BETTER. NO REUEST MADE. INSTRUCTED PT TO NOTIFY NURSE WITH ANY PROBLEMS, NEEDS, OR CONCERNS. VERBALIZED UNDERSTANDING. BED INLOW POSITION. SR UP X2. CALL LIGHT WITHIN PTS REACH. INFANT IN NBN AT THIS TIME.
--- NOTE | 2019-01-12 06:24 | NUR ---
PT UP TO BATHROOM. DENIES ANY COMPLAINTS OR NEEDS. IN NBN AT THIS TIME.INSTRUCTED PT TO NOTIFY NURSE WITH ANY PROBLEMS, NEEDS, OR CONCERNS. VERBALIZED UNDERSTANDING. BED IN LOW POSITION. SR UP X2. CALL LIGHT WITHIN PTS REACH.
[2019-01-12 06:30] LABS: BASOPHILS 0.1 % (0-2); EOSINOPHILS 0.5 % (0-7); HEMATOCRIT 24.5 % (36.0-48.0); HEMOGLOBIN 7.9 g/dL (12-16); IMMATURE GRANULOCYTES 0.3 % (0-5); LYMPHOCYTES 16.2 % (15-50); MCH 29.3 pg (26.0-34.0); MCHC 32.2 g/dL (31.0-37.0); MCV 90.7 fL (80.0-100.0); MEAN PLATELET VOLUME 9.3 fL (7.4-10.4); MONOCYTES 6.7 % (2-11); NEUTROPHILS 76.2 % (40-80); RDW 14.4 % (11.5-14.5); WBC 7.6 10x3/uL (4.8-10.8)
[2019-01-12 06:33] LABS: PLATELET COUNT 139 10x3/uL (130-400)
--- NOTE | 2019-01-12 07:45 | NUR ---
PT RESTING IN BED, INFORMED PT THAT I WILL BE BACK SHORTLY TO DO ASSESSMENT, PT VERBALIZES UNDERSTANDING, PT RATES INC PAIN 07/20, INFORMED PT I WILL ADM PAIN MED WHEN DUE, PT VERBALIZES UNDERSTANDING, DENIES NEEDS AT THIS TIME
[2019-01-12 08:10] LABS: RAPID PLASMA REAGIN Non Reactive (Non Reactive)
[2019-01-12 08:30] VITALS: BP 98/59
--- NOTE | 2019-01-12 08:30 | NUR ---
PATIENT RESTING IN BED. ASSESSMENT PER FLOWSHEET. VITAL SIGNS TAKEN. IV SALINE LOCK IN RIGHT FOREARM. NO REDNESS OR SWELLING NOTED. VOIDING WTIHOUT DIFFICULTY. SCD'S NOT ON AT THIS TIME PATIENT IS AMBULATORY. PATIENT STATES PAIN LEVEL IS AN 8 AND REQUESTS PAIN MED. FUNDUS IS FIRM 2 BELOW THE UMBILICUS. LOCHIA IS SMALL. PATIENT STATES SHE HAS PASSED SOME SMALL CLOTS. DRESSING CLEAN, DRY AND INTACT OVER LOW TRANSVERSE ABDOMENAL INCISION. BOWEL SOUNDS HYPOACTIVE IN ALL QUADRANTS. PATIENT STATES SHE IS NOT PASSING FLATUS. ENCOURAGED TO AMBULATE TODAY IN HALLWAY. INSTRUCTED ON USE OF INCENTIVE SPIROMETER; PATIENT STATES UNDERSTANDING AND DEMONSTRATES USE OF SPIROMETER. INSTRUCTED TO USE SPIROMETER 6-7 TIMES PER HOUR TAKING 5-6 DEEP BREATHS WITH EACH USE. STATES UNDERSTANDING.
--- NOTE | 2019-01-12 09:30 | NUR ---
IN TO CHANGE NICOTINE PATCH. SITTING UP IN BED FEEDING BABY. STATES PAIN LEVEL IS STILL AROUND 7-8.
--- NOTE | 2019-01-12 10:21 | NUR ---
DR PARISI CALLS UNIT, REPORT OF H&H AND PT IS ASYMPTOMATIC
--- NOTE | 2019-01-12 11:43 | NUR ---
PT AWAKE, HOLDING INFANT, RATES PAIN 07/20, ENC AMB IN YUSUF, PT VERBALIZES UNDERSTANDING, PT DENIES AT THIS TIME, S/O AND PT'S MOM AT BEDSIDE
--- NOTE | 2019-01-12 11:58 | OP ---
PATIENT NAME: MARC HUNT MEDICAL RECORD: [id number] :96 [facility] ADMISSION DATE:01/11/19 SURGEON: BEAR PARISI MD DATE OF OPERATION: 01/11/2019 PREOPERATIVE DIAGNOSES: 1. at 39 weeks. 2. History of prior section. 3. Undesired fertility. POSTOPERATIVE DIAGNOSES: 1. at 39 weeks. 2. History of prior section. 3. Undesired fertility. PROCEDURE: 1. Repeat low transverse section. 2. tubal ligation using a Grenora technique. SURGEON: Bear Parisi MD METAL TANK BUILDER: Asad Galindo. ANESTHESIA: Spinal. FINDINGS: Viable female infant, vertex presentation, Apgars 9 and 9. Weight is 6 pounds 2 ounces. Uterus, tubes, and ovaries are unremarkable. SPECIMENS REMOVED: 1. Placenta. 2. Bilateral tubes. SPECIMEN DISPOSITION: 1. Discarded. 2. Pathology. ESTIMATED BLOOD LOSS: Less than or equal to 800 cc. FLUIDS: 1700 cc lactated Ringer's. URINE OUTPUT: 300 cc of clear urine. COMPLICATIONS: None. DRAINS: Rosas to gravity. INDICATIONS: This is a 23-year-old parous female at term. The patient is consented for a repeat low transverse section. The patient is requesting tubal ligation. Risk and benefits of tubal ligation have been discussed as well as the chance of regret. The patient acknowledges all alternatives and still wishes to pursue permanent sterilization. DESCRIPTION OF PROCEDURE: After informed consent was assured, the patient was taken to the operating room where anesthetic is obtained. The patient was now prepped and draped after Rosas catheter started. Assessment of the anesthetic OPERATIVE REPORT [id number] MARC HUNT finds it to be adequate and with the patient in the leftward lateral tilt, the procedure begun. Incision was made over the old scar, carried down to the underlying layer of the fascia, which was opened in the midline and extended laterally. Rectus bellies were now dissected free in the midline and . Peritoneum has been entered sharply. With the bladder flap developed, a low transverse hysterotomy was now performed. was delivered onto the abdomen atraumatically. Cord was doubly clamped and cut and the passed the attendant. Cord blood sample was now obtained. With the score of 9 and 9, cord gases not drawn. The placenta was delivered via Crede maneuver. Uterus was now exteriorized, cleared of all clot and debris. The hysterotomy was closed with a running stitch of Vicryl. Once hemostasis was assured, attention was directed to the right tube where a window was developed in the mesosalpinx and 2 ligatures passed through this opening. One ligature secured proximally and the other distally on this opening and the intervening segment of tube excised with Metzenbaum scissors. The ostia was now cauterized. This was performed on the contralateral side. Both tubes and specimens were sent to pathology. Uterus was now returned to the abdomen and pelvis irrigated. The tubal stumps were now visualized with the assistance of a Fernandez retractor and both right and left stumps are hemostatic. The rectus bellies were loosely approximated in the midline and the fascia was closed with a running looped PDS. Subcutaneous tissues were irrigated, bleeding vessels cauterized, and the scar is now removed with a scalpel. Old scar was passed off the field. Subcutaneous tissues were reapproximated with plain gut stitch and the skin was closed with a subcuticular Monocryl on a Neo needle. Dermabond and pressure dressing is applied. TRANSINT:[id number] Voice Confirmation ID: [id number] DOCUMENT ID: [id number] BEAR PARISI MD at 1158 CC: [id number] DICTATION DATE: 01/11/19 1040 AUTO CLUB TRAVEL COUNSELOR: 01/11/19 1226 ADM IN [facility] [address] [place] [address]
--- NOTE | 2019-01-12 12:06 | NUR ---
PT SITTING UP IN BED WITH IN ARMS. ENCOURAGED TO SHOWER AND BEGIN AMBULATING IN THE HALLS AFTER LUNCH.
[2019-01-12 12:15] VITALS: BP 111/50
--- NOTE | 2019-01-12 13:30 | NUR ---
IN TO SEE PATIENT. FAMILY AND VISITORS AT BEDSIDE. OFFERED TO HELP PATIENT UP TO SHOWER. DECLINED AT THIS TIME.
--- NOTE | 2019-01-12 14:30 | NUR ---
PT. UP TO SHOWER. IV SITE COVERED. LINENS CHANGED.
--- NOTE | 2019-01-12 14:59 | NUR ---
Late Entry for 1300 - Spoke with patient, SO, and mother of patient about occurence with NB . Re-instructed necessity to utilize the crib when tired or sleeping or to call the nursery to pick NB up. Reiterated and provided education on S/S to be mindful for on baby and to report any changes to the nurse or nursery. Per patient, and observing while in the room, the NB is active, moving all extremeties, not irritable and feeding well without issues.
--- NOTE | 2019-01-12 15:15 | NUR ---
DRESSING REMOVED. INCISION CLEAN DRY AND INTACT WITH DERMABOND. BRUISE APPROXIMATELY 1CM DIAMETER BELOW INCISION LINE. HUMBLE PAD PLACED OVER INCISION FOR COMFORT AND MOISTURE CONTROL.
--- NOTE | 2019-01-12 16:05 | NUR ---
PT SITTING UP IN BED. FAMILY AND INFANT AT BEDSIDE. REQUESTING PAIN MEDICINE.
--- NOTE | 2019-01-12 17:00 | NUR ---
ATTEMPTED TO FLUSH IV WITHOUT SUCCESS. PT. C/O PAIN AT SITE. SALINE LOCK REMOVED. TIP INTACT. PRESSURE HELD. APPLIED 2X2 AND BANDAGE OVER SITE.
[2019-01-12 17:15] VITALS: BP 115/71
--- NOTE | 2019-01-12 17:45 | NUR ---
AMBULATING IN HALLWAY, GAIT STEADY.
--- NOTE | 2019-01-12 18:30 | NUR ---
DR IBARRA ON L&D, REPORT OF IV OUT, ORDERS TO D/C TORADOL AND START MOTRIN Q6H PO, ORDERS READ BACK AND VERIFIED
--- NOTE | 2019-01-12 18:30 | NUR ---
SITTING UP IN BED. FAMILY AND S/O AT BEDSIDE. IN OPEN CRIB AT BEDSIDE. NO COMPLAINTS AT THIS TIME; REQUESTS JUICE. ORANGE JUICE GIVEN.
--- NOTE | 2019-01-12 19:27 | NUR ---
BEDSIDE REPORT RECEIVED FROM OFF GOING RN RAND URENA. PT RESTING IN BED. VISITORS IN ROOM. PT DENIES ANY COMPLAINTS OR NEEDS AT THIS TIME. S/O HOLDING INFANT. NO DISTRESS NOTED. BED IN LOW POSTION. SR UP X2. CALL LIGHT WITHIN PTS REACH.
--- NOTE | 2019-01-12 20:00 | NUR ---
PT RESTING IN BED. ASSESSMENT COMPLETE PER FLOWSHEET. VSS. PT C/O ABD/INCSIONAL/GAS PAIN. PERCOCET 10 X1 TABLET GIVEN ALONG WITH SCHEDULED MOTRIN. BBS CLEAR. ACTIVE BS X4 QUADRANTS. PT REPORTS THAT SHE IS PASSING FLATUS. LOW TRANSVERSE ABD INCISION C/D/I WITH DERMABOND. BRUISING NOTED TO INCISION SITE. FUNDUS FIRM AT UMBILICUS. SMALL AMOUNT OF LOCHIA NOTED ON PERIPAD. NO EDEMA NOTED TO BLE. POC DISCUSSED INCLUDING PAIN MANAGEMENT AND AMBULATION. QUESTIONS ANSWERED. S/O IN ROOM HOLDING AT THIS TIME. WATER PITCHER FILLED. PT INSTRUCTED TO NOTIFY NURSE WITH ANY PROBLEMS, NEEDS,OR CONCERNS. VERBALIZED UNDERSTANDING. BED IN LOW POSITION. SR UP X2. CALL LIGHT WITHIN PTS REACH.
[2019-01-12 20:06] VITALS: BP 101/60
--- NOTE | 2019-01-12 21:40 | NUR ---
PT RESTING IN BED. CUP OF ICE PROVIDED PER PT REQUEST. PT DENIES ANY COMPLAINTS AT THIS TIME. INSTRUCTED PT TO NOTIFY NURSE WITH ANY PROBLEMS, NEEDS, OR CONCERNS. VERBALIZED UNDERSTANDING. BED IN LOW POSITION. SR UP X2. CALL LIGHT WITHIN PTS REACH.
--- NOTE | 2019-01-12 23:05 | NUR ---
PT RESTING IN BED WITH EYES CLOSED. NO DISTRESS NOTED. BED IN LOW POSITION. SR UP X2. CALL LIGHT WITHIN PTS REACH.
[2019-01-13 00:40] VITALS: BP 119/72
--- NOTE | 2019-01-13 00:40 | NUR ---
PT RESTING IN BED. VSS. NO REQUEST MADE. INSTRUCTED PT TO NOTIFY NURSE WITH ANY PROBLEMS, NEEDS, OR CONCERNS. VERBALIZED UNDERSTANDING. IN NBN AT THIS TIME. BED IN LOW POSITION. SR UP X2. CALL LIGHT WITHIN PTS REACH.
--- NOTE | 2019-01-13 01:26 | NUR ---
PT RESTING IN BED WITH EYES CLOSED. EASILY AROUSED TO TAKE SCHEDULED MOTRIN. PT DENIES ANY COMPLAINTS OR NEEDS AT THIS TIME. INFANT IN NBN. PT INSTRUCTED TO NOTIFY NURSE WITH ANY PROBLEMS, NEEDS, OR CONCERNS. VERBALIZED UNDERSTANDING. BED IN LOW POSITION. SR UP X2. CALL LIGHT WITHIN PTS REACH.
--- NOTE | 2019-01-13 02:15 | NUR ---
PT RESTING IN BED WITH EYES CLOSED. NO DISTRESS NOTED. BED IN LOW POSITION. SR UP X2. CALL LIGHT WITHIN PTS REACH. IN NBN AT THIS TIME.
[2019-01-13 04:08] VITALS: BP 102/59
--- NOTE | 2019-01-13 04:08 | NUR ---
PT RESTING IN BED. VSS. PERCOCET 10 X1 TABLET GIVEN FOR C/O ABD/INC PAIN. WATER PITCHER FILLED. PT INSTRUCTED TO NOTIFY NURSE IF MEDICATION NOT EFFECTIVE OR WITH ANY OTHER PROBLEMS, NEEDS,OR CONCERNS. VERBALIZED UNDERSTANDING. INFANT IN NBN AT THIS TIME. BED IN LOW POSITION. SR UP X2. CALL LIGHT WITHIN PTS REACH.
--- NOTE | 2019-01-13 04:50 | NUR ---
PT SITTING UP IN BED. PT REPORTS HER PAIN IS NOW 6/10. APPLE JUICE PROVIDED. INSTRUCTED PT TO NOTIFY NURSE WITH ANY PROBLEMS, NEEDS, OR CONCERNS. VERBALIZED UNDERSTANDING. INFANT IN NBN AT THIS TIME. BED IN LOW POSITION. SR UP X2. CALL LIGHT WITHIN PTS REACH.
[2019-01-13 07:55] VITALS: BP 113/62
--- NOTE | 2019-01-13 07:55 | NUR ---
PT SITTING UP IN BED. CONSUMING BREAKFAST. VSS. HRRR WITHOUT AUDIBLE MURMUR. BBS CLEAR. BS X 4. ABDOMEN SOFT/NON-DISTENDED. FUNDUS FIRM AT U/2. RUBRA LOCHIA SMALL AMT. PT DENIES HEAVY BLEEDING OR PASSING CLOTS. ABDOMINAL INCISION WITH BRUISING NOTED AROUND INCISION. NO REDNESS, SWELLING OR DRAINAGE NOTED. NEG HOMANS' SIGN. PPP. NO EDEMA NOTED TO BLE. PT C/O INCISIONAL/ABDOMINAL PAIN OF "8" ON 0-10 PAIN SCALE. FRESH ICE WATER PROVIDED TO PT. SR UP X 2. CALL LIGHT IN REACH.
--- NOTE | 2019-01-13 08:04 | NUR ---
PERCOCET 10/325 GIVEN PO ORDERED FOR PT C/O PAIN.
--- NOTE | 2019-01-13 09:22 | NUR ---
PT AMBULATORY IN ROOM. CARING FOR INFANT. STATES PAIN MEDICATION RELIEVING PAIN. DENIES C/O OR NEEDS.
--- NOTE | 2019-01-13 11:43 | NUR ---
PT SITTING UP IN BED. VISITS WITH FAMILY. DENIES C/O OR NEEDS.
--- NOTE | 2019-01-13 12:57 | NUR ---
PT C/O INCISIONAL PAIN. PERCOCET 10/325 GIVEN PO ORDERED.
--- NOTE | 2019-01-13 13:10 | NUR ---
DR PARISI VISITS WITH PT. ORDERS RECEIVED TO [facility].
[2019-01-13] MEDS ORDERED: PERCOCET 7.5/321 TAB PO (13:46)
[2019-01-13] MEDS ORDERED: IBUPROFEN800 MG PO (13:47)
--- NOTE | 2019-01-13 14:17 | NUR ---
PT SITTING UP IN BED. WAITING ON DISCHARGE OF AND SELF. MOTRIN 600 MG GIVEN PO ORDERED. PT INSTRUCTED ON MED. VERBALIZES UNDERSTANDING.
--- NOTE | 2019-01-13 15:45 | NUR ---
DISCHARGE INSTRUCTIONS GIVEN TO PT. PT VERBALIZES UNDERSTANDING OF ALL INSTRUCTIONS. COPIES GIVEN TO PT. RX FOR PERCOCET AND MOTRIN GIVEN TO PT. PT PREPARES FOR DISCHARGE.
--- NOTE | 2019-01-13 16:00 | NUR ---
PT READY FOR DISCHARGE. DISCHARGED IN STABLE CONDITION WITH VIA WHEELCHAIR TO PRIVATE VEHICLE.
== END 2019-01-13 16:00 | disposition home or self-care (01) | DRG 785 ==
LOC: D.LD 05:59
PROVIDERS: ADMIT Obstetrics & Gynecology; ATTEND Obstetrics & Gynecology
PROC: 10D00Z1 Extraction of Products of Conception, Low, Open Approach (ICD-10-PCS; principal; 2019-01-11 09:00)
PROC: 0UB70ZZ Excision of Bilateral Fallopian Tubes, Open Approach (ICD-10-PCS; 2019-01-11 09:00)
DX: O34.211 Maternal care for low transverse scar from previous cesarean delivery (principal); Z3A.39 39 weeks gestation of pregnancy; Z37.0 Single live birth; Z30.2 Encounter for sterilization; Z30.09 Encounter for other general counseling and advice on contraception